=== PATIENT | female | born 1985 | race Caucasian/White ===

== ENCOUNTER 2020-12-22 12:01 | Inpatient (IN) ==
[2020-12-22] MEDS ORDERED: SODIUM CHLORIDE 0.9% 1000ML 1,000 ML IV ONE (12:25)
[2020-12-22] MEDS ORDERED: ACETAMINOPHEN 1,000 MG/100 ML VIAL IV STA (12:25)
[2020-12-22] MEDS ORDERED: ONDANSETRON INJ 2 MG/ML 2 ML VIAL IV STA ×2 (12:25→16:47)
[2020-12-22 12:50] LABS: Basophils # (auto) 0.01 K/uL (0-0.2); Basophils % (auto) 0.1 %; Hematocrit (blood only) 39.8 % (37-47); Hemoglobin 13.4 g/dL (12.0-16.0); Immature Granulocytes # (auto) 0.04 K/uL (0.00-0.02); Immature Granulocytes % (auto) 0.3 %; Lymphocytes # (auto) 0.71 K/uL (1.2-3.4); Lymphocytes % (auto) 5.8 %; Mean Corpuscular Hemoglobin 29.4 pg (25-34); Mean Corpuscular Hgb Conc 33.7 g/dL (32-36); Mean Corpuscular Volume 87.3 fL (80-100); Mean Platelet Volume 9.5 fL (7.4-10.4); Monocytes # (auto) 0.61 K/uL (0.11-0.59); Neutrophils # (auto) 10.93 K/uL (1.4-6.5); Neutrophils % (auto) 88.8 %; Platelet Count 159 K/uL (130-400); RDW Coefficient of Variation 13.5 % (11.5-14.5); RDW Standard Deviation 43.7 fL (36.4-46.3); Red Blood Count 4.56 M/uL (4.2-5.4)
[2020-12-22 13:09] LABS: Albumin Level 3.3 gm/dl (3.4-5.0); BUN Creatinine Ratio 14.3 (10-20); Calcium 9.1 mg/dl (8.5-10.1); Creatinine Clr Calc Pharmacy 65.7 ml/min; Est GFR (African American) 86.5 ml/min; Est GFR (Non-African American) 74.6 ml/min; Potassium 3.7 mmol/L (3.5-5.1); Pregnancy Test, Serum Negative (Negative)
[2020-12-22 13:10] LABS: Appearance Urine Cloudy (Clear); Bilirubin Urine 3+ (Negative); Blood Urine 3+ (Negative); Color Urine Dark Yellow; Epithelial Cell Urine Auto 20-30 /lpf (0-5); Glucose Urine UA Negative (Negative); Ketones Urine 4+ (Negative); Leukocyte Esterase Urine 1+ (Negative); Nitrite Urine Negative (Negative); Protein Urine 2+ (Negative); RBC Urine Automated >30 /hpf (0-4); Specific Gravity Urine 1.029 (1.000-1.030); Urobilinogen Urine Negative (Negative); WBC Urine Automated >30 /hpf (0-5); pH Urine 5.5 (4.5-7.5)
[2020-12-22 13:11] LABS: Albumin Globulin Ratio 0.7 (0.9-2); Bilirubin,Total 0.9 mg/dl (0.2-1); Globulin 4.5 gm/dl (2.5-4.0); Total Protein 7.8 gm/dl (6.4-8.2)
[2020-12-22] MEDS ORDERED: LACTATED RINGER'S 1,000 ML IV ONE ×2 (13:35→15:38)
--- NOTE | 2020-12-22 13:47 | Emergency Department Note ---
History of Present Illness General Chief complaint: Flank Pain Stated complaint: NAUSEA,VOMITING,HEADACHE Time Seen by Provider: 12/22/20 12:20 Source: patient Mode of arrival: ambulatory Limitations: no limitations History of Present Illness Provider complaint: left flank pain, vomiting Onset (ago): day(s) 2 Radiation: non-radiation Maximum Pain Intensity: 2 Relieved By: + none Associated symptoms: + fever/chills, + loss of appetite, + malaise, + nausea/vomiting and + weakness Treatments prior to arrival: none This is a 35-year-old female presents emergency department complaining of left flank pain, nausea and vomiting and concern for dehydration. Patient states she began with symptoms 2 days ago, and has been unable to tolerate anything by mouth. Patient states this is similar to an episode previously where she was told she had a kidney stone. Patient states she has had minimal urine output due to decreased oral intake. She denies any diarrhea or change in stools. Denies any chance of . Denies any vaginal bleeding. She denies any additional URI symptoms, difficulty breathing, or chest pain. No family history of kidney stones. She states she did not have any additional follow-up after initial kidney stone and is uncertain if she passed it. On review of EMR at bedside with the patient, she did have a left ureteral stone of [address] imaging. Patient denies chance of , states she did just start her menstrual cycle. Pt seen during a time of high acuity and national emergency pandemic while wearing PPE. Home Medications Medication Instructions Recorded Confirmed Type etodolac 200 mg capsule 200 mg PO BID PRN #20 cap 10/26/20 12/22/20 Rx ondansetron 4 mg disintegrating 4 mg PO Q8H PRN #30 tab 10/26/20 12/22/20 Rx tablet Allergies Allergy/AdvReac Type Severity Reaction Status Date / Time No Known Allergies Allergy Unverified 12/22/20 13:12 Past Med/Surg History Medical History No pertinent family history No pertinent past medical history Surgical History No pertinent past surgical history Social History Smoking Status: Never smoker Hx Alcohol Use: No Hx Substance Use: No Preferred Language: Korean Communication Ability: Effective Lock Operator Required: No Beliefs That Will Affect Care: None Current Living Situation: Family Current Living Situation Comment: home Other Information That Helps Us Care for You: No Feels Safe at Home: Yes Assistive Devices: None Review of Systems A total of 10 systems reviewed and were otherwise negative All systems reviewed & are unremarkable except as noted in HPI & below Physical Exam Vital Signs Vital Signs - 24 hr 12/22/20 18:00 Temperature 36.9 C Temperature Source Oral Pulse Rate [Apical] 96 H Pulse Rhythm [Apical] Regular Pulse Strength [Apical] Normal Respiratory Rate 18 Respiratory Effort / Characteristics Non-Labored Spontaneous Respiratory Depth Normal Respiratory Pattern Regular Blood Pressure [Left Arm] 131/82 Blood Pressure Mean [Left Arm] 98 Blood Pressure Position [Left Arm] Semi-fowlers Pulse Oximetry 98 Oxygen Delivery Method Room Air GENERAL: alert, unwell appearing, well nourished, no distress, non-toxic EYE EXAM: normal conjunctiva, PERRL and EOM's grossly intact OROPHARYNX: no exudate, no erythema, lips, buccal mucosa, and tongue normal and mucous membranes are dry NECK: supple, no nuchal rigidity, no adenopathy, non-tender LUNGS: Clear to auscultation. Normal chest wall mechanics, no w/r/r HEART: no murmurs, S1 normal and S2 normal ABDOMEN: abdomen soft, non-tender, normo-active bowel sounds, no masses, no rebound or guarding. BACK: Back is symmetrical on inspection and there is no deformity, no midline tenderness, no CVA tenderness. SKIN: no rashes and no bruising UPPER EXTREMITIES: upper extremities are grossly normal. FROM, nml pulses b/l. LOWER EXTREMITIES: No pitting edema. FROM, nml pulses b/l. NEURO EXAM: Normal sensorium, cranial nerves II-XII grossly intact, normal speech, no gross weakness of arms, no gross weakness of legs. Gross sensation intact. Course Course 151: Patient updated on results, states she is feeling markedly improved, second liter still running. 1640: Patient attempted p.o. trial and after a few sips became very nauseated again. 1753: Patient still nauseated after additional nausea medication and unable to tolerate even sips of water. Patient concern for ability to tolerate p.o. at home which I agree with. Patient now also beginning to have what appears to be rigors at bedside. Discussed with her antibiotics and empiric treatment for what may be an evolving a sending UTI given abnormal UA. Patient did previously have a urinary tract infection with similar symptoms. Discussed with her it is unclear at this time if she could still have an occult stone in her ureter, there is no obvious evidence for acute stone on ultrasound. Ultrasound had initially been performed after bedside discussion of her recent evaluation including CT last month in order to spare her additional radiation exposure. Will recheck temperature and add antibiotics. 182: Discussed with Dr. Ritchie. He would like CAT scan given recent kidney stone. Administered Medications Acetaminophen (Acetaminophen 500 Mg Tab) 1,000 mg PO Q8H PRN PRN Reason: Pain or Fever Stop: 01/21/21 19:14 Last Admin: 12/22/20 23:31 Dose: 1,000 mg Documented by: [id number] Enoxaparin Sodium (Enoxaparin Inj 40 Mg/0.4 Ml Syr) 40 mg SQ Q24H BRADY Stop: 01/21/21 21:59 Last Admin: 12/22/20 23:33 Dose: Not Given Documented by: [id number] Potassium Chloride/Sodium Chloride (Normal Saline W/20 Meq Kcl) 20 meq in 1,000 mls @ 125 mls/hr IV .Q8H BRADY Stop: 12/23/20 22:59 Last Admin: 12/23/20 15:34 Dose: 125 mls/hr Documented by: [id number] Infusion: 12/23/20 15:32 Dose: 0 mls/hr Documented by: [id number] Admin: 12/23/20 07:06 Dose: 125 mls/hr Documented by: [id number] Infusion: 12/23/20 07:06 Dose: 125 mls/hr Documented by: [id number] Admin: 12/22/20 23:32 Dose: 125 mls/hr Documented by: [id number] Ertapenem 1,000 mg/ Sodium (Chloride) 60 mls @ 100 mls/hr IV Q24H BRADY; Protocol Stop: 01/02/21 07:59 Last Infusion: 12/23/20 09:59 Dose: 0 mls/hr Documented by: [id number] Admin: 12/23/20 08:07 Dose: 100 mls/hr Documented by: [id number] Discontinued Medications Ciprofloxacin (Ciprofloxacin 500 Mg Tab) 500 mg PO NOW STA Stop: 12/22/20 18:49 Last Admin: 12/23/20 00:13 Dose: 500 mg Documented by: [id number] Famotidine (Famotidine 20mg/5ml Iv Push) 20 mg IV ONE STA Stop: 12/22/20 16:49 Last Admin: 12/22/20 17:25 Dose: 20 mg Documented by: [id number] Sodium Chloride (Nss 1000ml) 1,000 mls @ 999 mls/hr IV .Q1H1M ONE Stop: 12/22/20 13:25 Last Infusion: 12/22/20 13:43 Dose: 0 mls/hr Documented by: [id number] Admin: 12/22/20 12:39 Dose: 999 mls/hr Documented by: [id number] Acetaminophen (Ofirmev) 1,000 mg in 100 mls @ 400 mls/hr IV NOW STA Stop: 12/22/20 12:39 Last Infusion: 12/22/20 12:56 Dose: 0 mls/hr Documented by: [id number] Admin: 12/22/20 12:40 Dose: 400 mls/hr Documented by: [id number] Lactated Ringer's (Lr) 1,000 mls @ 999 mls/hr IV .Q1H1M ONE Stop: 12/22/20 14:35 Last Infusion: 12/22/20 15:31 Dose: 0 mls/hr Documented by: [id number] Admin: 12/22/20 14:10 Dose: 999 mls/hr Documented by: [id number] Lactated Ringer's (Lr) 1,000 mls @ 999 mls/hr IV .Q1H1M ONE Stop: 12/22/20 16:38 Last Infusion: 12/22/20 18:27 Dose: 0 mls/hr Documented by: [id number] Admin: 12/22/20 15:47 Dose: 999 mls/hr Documented by: [id number] Cefepime HCl (Maxipime) 2,000 mg in 20 mls @ 5 mls/min IV NOW STA; Protocol Stop: 12/22/20 18:01 Last Admin: 12/22/20 18:22 Dose: 5 mls/min Documented by: [id number] Prochlorperazine (Compazine) 1 mls @ 1 mls/min IV ONE ONE Stop: 12/22/20 18:00 Last Admin: 12/22/20 18:18 Dose: 1 mls/min Documented by: [id number] Ondansetron HCl (Ondansetron Inj 2 Mg/Ml 2 Ml Vial) 4 mg IV NOW STA Stop: 12/22/20 12:26 Last Admin: 12/22/20 12:39 Dose: 4 mg Documented by: [id number] Ondansetron HCl (Ondansetron Inj 2 Mg/Ml 2 Ml Vial) 4 mg IV NOW STA Stop: 12/22/20 16:48 Last Admin: 12/22/20 17:24 Dose: 4 mg Documented by: [id number] Tamsulosin HCl (Tamsulosin Hcl 0.4 Mg Cap) 0.4 mg PO NOW ONE Stop: 12/22/20 16:45 Last Admin: 12/22/20 17:27 Dose: 0.4 mg Documented by: [id number] Medical Decision Making Differential Diagnosis Differential diagnosis: Etiologies such as shingles, pyelonephritis/UTI, renal colic, appendicitis, diverticulitis, mesenteric ischemia, torsion, aortic pathology, infections, inflammatory bowel disease, bowel obstruction, PUD, biliary pathology, as well as others were entertained. Medical Records Attestation: I reviewed the patient's medical records. Home Medications Current Medication List: was personally reviewed by me Laboratory Data Attestation: I reviewed the patient's lab results. Result diagrams: 12/23/20 07:30 12/23/20 07:30 Lab Results 12/22/20 12/22/20 12/22/20 Range/Units 12:35 12:35 12:35 WBC 12.30 H (4.8-10.8) K/uL RBC 4.56 (4.2-5.4) M/uL Hgb 13.4 (12.0-16.0) g/dL Hct 39.8 (37-47) % MCV 87.3 (80-100) fL MCH 29.4 (25-34) pg MCHC 33.7 (32-36) g/dL RDW Std Deviation 43.7 (36.4-46.3) fL RDW Coeff of Steve 13.5 (11.5-14.5) % Plt Count 159 (130-400) K/uL MPV 9.5 (7.4-10.4) fL Immature Gran % (Auto) 0.3 % Neut % (Auto) 88.8 % Lymph % (Auto) 5.8 % [place] % (Auto) 5.0 % Eos % (Auto) 0.0 % Baso % (Auto) 0.1 % Neut # (Auto) 10.93 H (1.4-6.5) K/uL Lymph # (Auto) 0.71 L (1.2-3.4) K/uL [place] # (Auto) 0.61 H (0.11-0.59) K/uL Eos # (Auto) 0.00 (0-0.5) K/uL Baso # (Auto) 0.01 (0-0.2) K/uL Immature Gran # (Auto) 0.04 H (0.00-0.02) K/uL Sodium 135 L (136-145) mmol/L Potassium 3.7 (3.5-5.1) mmol/L Chloride 102 (98-107) mmol/L Carbon Dioxide 25 (21-32) mmol/L Anion Gap 8.0 (3-11) BUN 14 (7-18) mg/dl Creatinine 0.97 (0.6-1.2) mg/dl Est Cr Clr Drug Dosing 65.7 ml/min Est GFR ( Amer) 86.5 ml/min Est GFR (Non-Af Amer) 74.6 ml/min BUN/Creatinine Ratio 14.3 (10-20) Glucose 109 H (70-99) mg/dl Calcium 9.1 (8.5-10.1) mg/dl Magnesium 2.0 (1.8-2.4) mg/dl Total Bilirubin 0.9 (0.2-1) mg/dl AST 15 (15-37) U/L ALT 30 (12-78) U/L Alkaline Phosphatase 58 (45-117) U/L Total Protein 7.8 (6.4-8.2) gm/dl Albumin 3.3 L (3.4-5.0) gm/dl Globulin 4.5 H (2.5-4.0) gm/dl Albumin/Globulin Ratio 0.7 L (0.9-2) Procalcitonin (0-0.5) ng/ml HCG, Qual Negative (Negative) Urine Color Urine Appearance (Clear) Urine pH (4.5-7.5) Ur Specific [place] (1.000-1.030) Urine Protein (Negative) Urine Glucose (UA) (Negative) Urine Ketones (Negative) Urine Blood (Negative) Urine Nitrite (Negative) Urine Bilirubin (Negative) Urine Urobilinogen (Negative) Ur Leukocyte Esterase (Negative) Urine WBC (Auto) (0-5) /hpf Urine RBC (Auto) (0-4) /hpf U Hyaline Cast (Auto) (0-5) /lpf U Epithel Cells (Auto) (0-5) /lpf Urine Bacteria (Auto) (Negative) Urine Mucus (None Prsent) Urine Yeast (None Prsent) 12/22/20 12/22/20 12/22/20 Range/Units 12:35 12:40 15:45 WBC (4.8-10.8) K/uL RBC (4.2-5.4) M/uL Hgb (12.0-16.0) g/dL Hct (37-47) % MCV (80-100) fL MCH (25-34) pg MCHC (32-36) g/dL RDW Std Deviation (36.4-46.3) fL RDW Coeff of Stvee (11.5-14.5) % Plt Count (130-400) K/uL MPV (7.4-10.4) fL Immature Gran % (Auto) % Neut % (Auto) % Lymph % (Auto) % [place] % (Auto) % Eos % (Auto) % Baso % (Auto) % Neut # (Auto) (1.4-6.5) K/uL Lymph # (Auto) (1.2-3.4) K/uL [place] # (Auto) (0.11-0.59) K/uL Eos # (Auto) (0-0.5) K/uL Baso # (Auto) (0-0.2) K/uL Immature Gran # (Auto) (0.00-0.02) K/uL Sodium (136-145) mmol/L Potassium (3.5-5.1) mmol/L Chloride (98-107) mmol/L Carbon Dioxide (21-32) mmol/L Anion Gap (3-11) BUN (7-18) mg/dl Creatinine (0.6-1.2) mg/dl Est Cr Clr Drug Dosing ml/min Est GFR ( Amer) ml/min Est GFR (Non-Af Amer) ml/min BUN/Creatinine Ratio (10-20) Glucose (70-99) mg/dl Calcium (8.5-10.1) mg/dl Magnesium (1.8-2.4) mg/dl Total Bilirubin (0.2-1) mg/dl AST (15-37) U/L ALT (12-78) U/L Alkaline Phosphatase (45-117) U/L Total Protein (6.4-8.2) gm/dl Albumin (3.4-5.0) gm/dl Globulin (2.5-4.0) gm/dl Albumin/Globulin Ratio (0.9-2) Procalcitonin 0.65 H (0-0.5) ng/ml HCG, Qual (Negative) Urine Color Dark Yellow Yellow Urine Appearance Cloudy A Clear (Clear) Urine pH 5.5 5.5 (4.5-7.5) Ur Specific [place] 1.029 1.010 (1.000-1.030) Urine Protein 2+ H Negative (Negative) Urine Glucose (UA) Negative Negative (Negative) Urine Ketones 4+ H 3+ H (Negative) Urine Blood 3+ H 3+ H (Negative) Urine Nitrite Negative Negative (Negative) Urine Bilirubin 3+ H Negative (Negative) Urine Urobilinogen Negative Negative (Negative) Ur Leukocyte Esterase 1+ H 1+ H (Negative) Urine WBC (Auto) >30 H 10-30 H (0-5) /hpf Urine RBC (Auto) >30 H >30 H (0-4) /hpf U Hyaline Cast (Auto) 1-5 1-5 (0-5) /lpf U Epithel Cells (Auto) 20-30 H 10-20 H (0-5) /lpf Urine Bacteria (Auto) 2+ H 1+ H (Negative) Urine Mucus Present A (None Prsent) Urine Yeast Present A (None Prsent) Imaging Data Radiologist's Impression: Renal Ultrasound 12/22/20 12:25 RENAL ULTRASOUND HISTORY: left flank pain, hx stone COMPARISON: Abdomen and pelvis CT 10/26/2020. FINDINGS: Right kidney: 11.4 cm. No hydronephrosis. Normal corticomedullary different iation and cortical thickness. Left kidney: 12.4 cm. Mild left hydronephrosis, unchanged. Normal corticomedullary differentiation and cortical thickness. Bladder: No bladder wall thickening. Only the right ureteral jet was identified. IMPRESSION: 1. Mild left hydronephrosis, unchanged. 2. Normal right kidney. ACT 112: Negative or not required by law. Electronically signed by: Stefan Phipps M.D. 12/22/2020 2:46 PM Abdomen/Pelvis CT 12/22/20 18:26 CT abd pelvis wo con CLINICAL HISTORY: flank pain, n/v, recent stone, poss pyelo TECHNIQUE: Helical axial images of the abdomen and pelvis were obtained. Automated dose lowering techniques and/or adjustment according to patient size were utilized for this exam. This exam was performed without intravenous contrast. COMPARISON: Comparison is made to CT abdomen pelvis 10/26/2020 FINDINGS: Lower chest: No acute abnormality Liver: Unremarkable. No focal lesions are seen. Gallbladder and biliary tree: No calcified gallstones. Normal caliber wall. No intra- or extrahepatic biliary ductal dilation. Pancreas: Unremarkable, no focal lesions. Spleen: Unremarkable. Adrenals: Unremarkable. Kidneys and ureters: Left hydronephrosis and hydroureter is seen. There is a stone in the proximal ureter measuring 3 mm in diameter. Bladder: Unremarkable. Reproductive organs: Unremarkable. Bowel: Unremarkable. Lymph nodes Retroperitoneal: Unremarkable. Mesenteric: Unremarkable. Pelvic: Unremarkable. Peritoneum: Normal Vessels: Atherosclerotic calcifications are seen. Abdominal wall: Unremarkable. Bones: Unremarkable. IMPRESSION: Obstructive stone in the left ureter measuring 3 mm, with resulting hydronephrosis/hydroureter. ACT 112: Negative or not required by law. Electronically signed by: Marcin Womack M.D. 12/22/2020 8:43 PM ECG Data Attestation: I personally reviewed and interpreted this ECG as follows: Indication: + abdominal pain and + vomiting Rate (beats per minute): 92 Rhythm: + normal sinus ECG Intervals/blocks: + Normal QRS and + Normal QT ECG [place]: + Normal ECG ST segments: + Normal ST segments MDM Narrative This is a 35-year-old female who presents with abrupt onset left flank pain, nausea and vomiting over the last several days. Patient concerned about pain as well as dehydration. Patient did appear clinically dry and was initially tachycardic. IV fluids started, labs drawn and sent which were reassuring. No evidence of TIFFANIE. Given recent CAT scan within the last 60 days for a kidney stone, we discussed opting for a renal ultrasound to minimize radiation exposure. Ultrasound was unrevealing. Patient's urine specimen initially difficult to interpret as it is in part likely contaminated from her menstrual cycle but it did also appear as though the patient is dehydrated. Patient was rehydrated with 2 L of IV fluids and a repeat UA was sent. This was minimally improved. Patient then began to develop rigors while here. Due to concern for occult evolving infection unlikely pyelonephritis as well as patient's ongoing nausea and inability to tolerate p.o., case was discussed with the hospitalist. During this discussion they requested repeat CT imaging to evaluate for possible recurrent stone. Patient had received IV cefepime and after review of urine culture and recent E. coli ESBL, Cipro was also added. Repeat urine culture is pending. Patient remained hemodynamically stable while in the emergency department. She was seen by the hospitalist while CT was pending. They will follow-up results and re-evaluate. An order was placed for continuous cardiac monitoring. The monitor shows a rate of _106 with sinus tachycardia_ rhythm. Impression & Plan Flank Pain, Nausea and vomiting, Acute dehydration, Acute pyelonephritis, Ureterolithiasis Discharge Plan Visit Data Chief Complaint: Flank Pain Stated Complaint: NAUSEA,VOMITING,HEADACHE ED Provider: Meggan Morrow Discharge Problem: Flank Pain, Nausea and vomiting, Acute dehydration, Acute pyelonephritis, Ureterolithiasis Patient Disposition: Admitted As Inpatient Condition: Good Discharge Instructions Interventions: ED Discharge Assessment Last Done: 12/22/20 21:41
[2020-12-22 13:55] LABS: Mucus Urine Present (None Prsent)
[2020-12-22 13:56] LABS: Bacteria Urine Automated 2+ (Negative)
--- NOTE | 2020-12-22 14:48 | Ultrasound Report ---
RENAL ULTRASOUND HISTORY: left flank pain, hx stone COMPARISON: Abdomen and pelvis CT 10/26/2020. FINDINGS: Right kidney: 11.4 cm. No hydronephrosis. Normal corticomedullary differentiation and cortical thickn ess. Left kidney: 12.4 cm. Mild left hydronephrosis, unchanged. Normal corticomedullary differentiation an d cortical thickness. Bladder: No bladder wall thickening. Only the right ureteral jet was identified. IMPRESSION: 1. Mild left hydronephrosis, unchanged. 2. Normal right kidney. ACT 112: Negative or not required by law. Electronically signed by: Stefan Phipps M.D. 12/22/2020 2:46 PM
[2020-12-22 16:10] LABS: Appearance Urine Clear (Clear); Bacteria Urine Automated 1+ (Negative); Bilirubin Urine Negative (Negative); Blood Urine 3+ (Negative); Color Urine Yellow; Glucose Urine UA Negative (Negative); Ketones Urine 3+ (Negative); Leukocyte Esterase Urine 1+ (Negative); Nitrite Urine Negative (Negative); Protein Urine Negative (Negative); RBC Urine Automated >30 /hpf (0-4); Urobilinogen Urine Negative (Negative); pH Urine 5.5 (4.5-7.5)
[2020-12-22] MEDS ORDERED: TAMSULOSIN HCL 0.4 MG CAP PO ONE (16:44)
[2020-12-22] MEDS ORDERED: FAMOTIDINE 20MG/5ML IV PUSH IV STA (16:48)
[2020-12-22] MEDS ORDERED: CEFEPIME 2,000 MG/20 ML VIAL IV STA (17:58)
[2020-12-22] MEDS ORDERED: PROCHLORPERAZINE 1 ML IV ONE (17:59)
[2020-12-22] MEDS ORDERED: CIPROFLOXACIN 500 MG TAB PO STA (18:48)
[2020-12-22] MEDS ORDERED: PROMETHAZINE HCL 12.5 MG in SODIUM CHLORIDE 0.9% 50 ML IV PRN (18:54)
--- NOTE | 2020-12-22 19:09 | History & Physical Report ---
Date of Service December 22, 2020 Assessment & Plan (1) Acute pyelonephritis: Plan: Noted to have a 4 mm obstructive stone in left proximal ureter with mild left hydronephrosis and hydroureter on 26 October on CAT scan Ultrasound showed left mild hydronephrosis, awaiting CT scan report Had chills with increasing white count and UA suggestive of infection Likely has pyelonephritis with or without left ureteric stone Received a dose of cefepime changed to Cipro and will continue Symptomatic medications IV fluid and pain control May need urology evaluation Urine culture grew ESBL on 26 October Sensitive to Cipro Await urine culture Blood cultures will be ordered (2) Flank Pain: Plan: Secondary to ureteric stone which is documented on 26 October (3) Nausea and vomiting: Plan: Likely due to pyonephritis (4) Acute dehydration: Plan: Received intravenous fluid We will continue IV fluid and monitor PRP DVT prophylaxis Subcu Lovenox CODE STATUS Full History of Present Illness Chief Complaint: Left flank pain with nausea vomiting for the last 3 days Primary Care Provider: NO PCP She is a 35-year-old female without significant past medical history apparently was in the ER on 26 October with left flank pain. At that time she was diagnosed to have a left ureteric stone on CAT scan and was sent home on oral pain medications and was advised to drink more fluid. She has been complaining of left flank pain/discomfort associated with profuse nausea and vomiting. She has not been keeping anything down and getting weak and tired. She complains to have chills but no documented temperature. She has dysuria without any frequency and no problem with her bowel habit. She was noted to have slightly elevated white count, UA suggestive of infection and ultrasound of the kidney did show possible hydronephrosis on the left side. She received a dose of cefepime in the ER and later on Cipro was given to continue and she underwent CT of the abdomen and pelvis to evaluate the stone and the kidneys. She was admitted to medical floor for continuation of care. Allergies Allergy/AdvReac Type Severity Reaction Status Date / Time No Known Allergies Allergy Unverified 12/22/20 13:12 Home Medications Medication Instructions Recorded Confirmed Type etodolac 200 mg capsule 200 mg PO BID PRN #20 cap 10/26/20 12/22/20 Rx ondansetron 4 mg disintegrating 4 mg PO Q8H PRN #30 tab 10/26/20 12/22/20 Rx tablet Past Med/Surg History Medical History No pertinent family history No pertinent past medical history Surgical History No pertinent past surgical history Social History Smoking Status: Never smoker Feels Safe at Home: Yes Review of Systems Review of Systems: All systems reviewed & are unremarkable except as noted in HPI & below Gastrointestinal: Left flank discomfort with profuse nausea and vomiting Genitourinary: Dysuria Physical Exam Physical Exam: Lying in bed with some discomfort due to abdominal pain Constitutional: + ill appearing and + thin Eyes: PERRL, conjunctivae normal, anicteric sclerae ENMT: external ear and nose normal, oropharynx normal Neck: trachea midline, no thyromegaly Respiratory: no respiratory distress Auscultation: lungs clear to auscultation bilaterally Cardiovascular: Rate/Rhythm: regular rate and regular rhythm; not tachycardic Heart Sounds: normal S1 and normal S2; no murmur Extremities: no edema Gastrointestinal (Abdomen): Inspection/Auscultation: abdomen not distended Percussion/Palpation: + abdomen tender (Left flank, left renal angle and left lower quadrant) Musculoskeletal: No acute arthritis in any joint Neurologic: Alert, awake and oriented x3. No focal sensory and motor deficit appreciated Psychiatric: A+Ox3, euthymic affect Lymphatic: no cervical or axillary lymphadenopathy Results & Data Results & Data ([facility]) Vital Signs (Past 12 Hours) Vital Signs Temp Pulse Pulse Resp BP BP Pulse Ox 12/22/20 18:00 36.9 C 96 H 18 131/82 98 12/22/20 16:00 84 16 119/87 99 12/22/20 14:02 91 H 16 102/71 99 12/22/20 13:30 98 H 20 106/76 97 12/22/20 13:00 105 H 20 97 12/22/20 12:02 37.6 C H 120 H 18 116/76 96 Laboratory Results Short CBC 12/22/20 Range/Units 12:35 WBC 12.30 H (4.8-10.8) K/uL Hgb 13.4 (12.0-16.0) g/dL Hct 39.8 (37-47) % Plt Count 159 (130-400) K/uL BMP 12/22/20 12:35 Sodium 135 L Potassium 3.7 Chloride 102 Carbon Dioxide 25 BUN 14 Creatinine 0.97 Glucose 109 H Calcium 9.1 Liver Function 12/22/20 Range/Units 12:35 Total Bilirubin 0.9 (0.2-1) mg/dl AST 15 (15-37) U/L ALT 30 (12-78) U/L Alkaline Phosphatase 58 (45-117) U/L Albumin 3.3 L (3.4-5.0) gm/dl Urine 12/22/20 12/22/20 Range/Units 12:40 15:45 Urine Color Dark Yellow Yellow Urine Appearance Cloudy A Clear (Clear) Urine pH 5.5 5.5 (4.5-7.5) Ur Specific [place] 1.029 1.010 (1.000-1.030) Urine Protein 2+ H Negative (Negative) Urine Glucose (UA) Negative Negative (Negative) Medications Administered Current Inpatient Medications Enoxaparin Sodium (Enoxaparin Inj 40 Mg/0.4 Ml Syr) 40 mg SQ QAM BRADY Stop: 01/21/21 18:59 Promethazine HCl 12.5 mg/ (Sodium Chloride) 50.5 mls @ 202 mls/hr IV Q6H PRN PRN Reason: Nausea And Vomiting Stop: 01/21/21 18:53 Code Status & VTE Plan VTE Prophylaxis Plan VTE Prophylaxis will be ordered: Yes (1) Nausea and vomiting Vomiting Intractability: non-intractable Vomiting type: unspecified Qualified Code(s): R11.2 - Nausea with vomiting, unspecified
--- NOTE | 2020-12-22 20:44 | CT Scan Report ---
CT abd pelvis wo con CLINICAL HISTORY: flank pain, n/v, recent stone, poss pyelo TECHNIQUE: Helical axial images of the abdomen and pelvis were obtained. Automated dose lowering tech niques and/or adjustment according to patient size were utilized for this exam. This exam was perfor med without intravenous contrast. COMPARISON: Comparison is made to CT abdomen pelvis 10/26/2020 FINDINGS: Lower chest: No acute abnormality Liver: Unremarkable. No focal lesions are seen. Gallbladder and biliary tree: No calcified gallstones. Normal caliber wall. No intra- or extrahepatic biliary ductal dilation. Pancreas: Unremarkable, no focal lesions. Spleen: Unremarkable. Adrenals: Unremarkable. Kidneys and ureters: Left hydronephrosis and hydroureter is seen. There is a stone in the proximal ur eter measuring 3 mm in diameter. Bladder: Unremarkable. Reproductive organs: Unremarkable. Bowel: Unremarkable. Lymph nodes Retroperitoneal: Unremarkable. Mesenteric: Unremarkable. Pelvic: Unremarkable. Peritoneum: Normal Vessels: Atherosclerotic calcifications are seen. Abdominal wall: Unremarkable. Bones: Unremarkable. IMPRESSION: Obstructive stone in the left ureter measuring 3 mm, with resulting hydronephrosis/hydroureter. ACT 112: Negative or not required by law. Electronically signed by: Marcin Womack M.D. 12/22/2020 8:43 PM
[2020-12-22] MEDS ORDERED: KETOROLAC TROMETHAMINE 15 MG/ML VIAL IV PRN (22:11)
[2020-12-22] MEDS ORDERED: Influenza Vaccine (Fluarix) 0.5 ML SYR (Standard Dose) IM ONE (23:15)
[2020-12-22] MEDS: ACETAMINOPHEN 500 MG TAB PO PRN (23:31)
[2020-12-22] MEDS: NSS + 20MEQ KCL 20 MEQ/1,000 ML BAG IV SCH (23:32)
[2020-12-22] MEDS: ENOXAPARIN INJ 40 MG/0.4 ML SYR SQ SCH (23:33)
[2020-12-23] MEDS: NSS + 20MEQ KCL 20 MEQ/1,000 ML BAG IV SCH ×2 (07:06→15:34)
[2020-12-23] MEDS ORDERED: ERTAPENEM CONSULT ACTIVE PRN (07:15)
[2020-12-23 07:52] LABS: Basophils # (auto) 0.01 K/uL (0-0.2); Basophils % (auto) 0.2 %; Eosinophils # (auto) 0.01 K/uL (0-0.5); Eosinophils % (auto) 0.2 %; Hematocrit (blood only) 34.2 % (37-47); Hemoglobin 11.2 g/dL (12.0-16.0); Lymphocytes # (auto) 0.68 K/uL (1.2-3.4); Lymphocytes % (auto) 10.8 %; Mean Corpuscular Hemoglobin 28.4 pg (25-34); Mean Corpuscular Hgb Conc 32.7 g/dL (32-36); Mean Corpuscular Volume 86.8 fL (80-100); Mean Platelet Volume 9.4 fL (7.4-10.4); Monocytes # (auto) 0.67 K/uL (0.11-0.59); Monocytes % (auto) 10.6 %; Neutrophils # (auto) 4.94 K/uL (1.4-6.5); Neutrophils % (auto) 78.2 %; Platelet Count 130 K/uL (130-400); RDW Coefficient of Variation 13.5 % (11.5-14.5); RDW Standard Deviation 43.6 fL (36.4-46.3); Red Blood Count 3.94 M/uL (4.2-5.4); White Blood Count 6.31 K/uL (4.8-10.8)
--- NOTE | 2020-12-23 07:52 | Electrocardiogram Report ---
Test Reason : Blood Pressure : / mmHG Vent. Rate : 092 BPM Atrial Rate : 092 BPM P-R Int : 122 ms QRS Dur : 086 ms QT Int : 334 ms P-R-T Axes : 067 057 039 degrees QTc Int : 413 ms Normal sinus rhythm Normal ECG No previous ECGs available Confirmed by Michael Estes ([id number]) on 12/23/2020 7:52:27 AM Referred By: REFERRED SELF Confirmed By:Wilian Estes
[2020-12-23] MEDS: ERTAPENEM SODIUM 1,000 MG in SODIUM CHLORIDE 0.9% 50 ML IV SCH (08:07)
[2020-12-23 08:17] LABS: BUN Creatinine Ratio 18.8 (10-20); Calcium 7.9 mg/dl (8.5-10.1); Creatinine Clr Calc Pharmacy 127.4 ml/min; Est GFR (African American) 143.3 ml/min; Est GFR (Non-African American) 123.6 ml/min; Potassium 3.9 mmol/L (3.5-5.1)
--- NOTE | 2020-12-23 08:39 | Urology Consultation ---
Date of Consultation December 23, 2020 Assessment & Plan (1) Left ureteral stone: (2) Acute pyelonephritis: We reviewed the CT findings of her 3 mm left proximal ureteral stone. We reviewed that this had not changed significantly since the CT scan from early October,. We also reviewed the results of her urinalysis -I think these are equivocal, as the epithelial cells suggest contamination, but there are bacteria present. The leukocyte esterase may be a result of the stone or po ssible infection. There are also yeast present on the UA. She does not have a significant leukocytosis at this time, and remains hemodynamically stable. The stone by itself is not a significant problem, but in the setting of possible infection we discussed the role for surgical intervention with cystoscopy, retrograde pyelogram and left ureteral stent placement, to allow maximal decompression of the left kidney. We discussed the risks and benefits of stent placement, including bleeding, infection, injury to the urinary tract, inability to place stent and need for future stone treatment. She expressed understanding but did not want to undergo surgery at this time. We discussed that not undergoing surgery could put her at risk for worsening infection, which in a worst-case scenario could result in . We discussed that normally a 3mm stone has a good chance of passing spontaneously, however since her stone has not moved over the past 2 months, she will likely require some form of intervention for the stone. She reports [place], and would like to wait until she goes home to have the stone addressed. I think it is reasonable to monitor for now, but told her that if she continues to have fevers or decompensates clinically, I would advocate more strongly for ureteral stent placement. Plan/recommendations: -Hold off on stent placement for now -Okay for diet today, would recommend n.p.o. at midnight again for reevaluation -Continue antibiotics -Consider adding antifungals (fluconazole) for yeast in urine -Pain control with Tylenol, NSAIDs, Flomax, -Zofran for nausea History of Present Illness Reason for Consultation: left ureteral stone, concern for urinary tract infection. Attending Physician: Vesta Ritchie MD History of Present Illness This is a 35-year-old female who presented to the emergency department with left-sided flank pain, as well as reported fevers to 39 cm at home. Since arrival, she has not had a measured temperature above 38.0C. She had previously been seen on 10/27/2020 in the emergency department flank pain, at which point she was diagnosed with a 4 mm left proximal ureteral stone. At that time, pain was controlled with ketorolac, nausea was controlled with Zofran. She was instructed to follow-up with urology office, but it does not appear that she ever made an appointment. This morning, she reports that her pain and nausea had resolved after the October ED visit, and she thought that the stone might of passed although she never actually visualized it. The pain restarted suddenly over the past few d ays, as well as the fevers, prompting presentation to the emergency department. Here she has been started on antibiotics, and is feeling somewhat better. She still has intermittent pain. She does not think she has had a urinary tract infection before, but reports some dysuria currently. No prior history of stones, no prior history of surgeries. Allergies Allergy/AdvReac Type Severity Reaction Status Date / Time No Known Allergies Allergy Unverified 12/22/20 13:12 Home Medications Medication Instructions Recorded Confirmed Type etodolac 200 mg capsule 200 mg PO BID PRN #20 cap 10/26/20 12/22/20 Rx ondansetron 4 mg disintegrating 4 mg PO Q8H PRN #30 tab 10/26/20 12/22/20 Rx tablet Patient History Medical History No pertinent family history No pertinent past medical history Surgical History No pertinent past surgical history Social History Smoking Status: Never smoker Hx Alcohol Use: No Hx Substance Use: No Preferred Language: Amharic Communication Ability: Effective Piano Stringer Required: No Beliefs That Will Affect Care: None Current Living Situation: Family Current Living Situation Comment: home Other Information That Helps Us Care for You: No Feels Safe at Home: Yes Review of Systems Constitutional: Reports fevers and chills at home Respiratory: No trouble breathing, no shortness of breath Cardiovascular: Additional Comments: No palpitations Gastrointestinal: Reports of nausea and vomiting Genitourinary: Flank pain, known kidney stone but has not passed. Some dysuria. Musculoskeletal: No muscle aches or joint pains Integumentary: No rashes or bruises Neurologic: No weakness, numbness or tingling Endocrine: No fatigue Hematologic / Lymphatic: No easy bleeding Physical Exam Physical Exam: Standing/pacing, anxious appearing Constitutional: No acute distress, mild diaphoresis Eyes: Conjugate gaze, no scleral icterus Respiratory: Breathing comfortably on room air, no audible wheezing Cardiovascular: Regular rate and rhythm Gastrointestinal (Abdomen): Nondistended, nontender Musculoskeletal: Grossly normal Skin: No rashes, bumps or bruises Neurologic: Moving all 4 extremities, no tremor Genitourinary: left flank tenderness Results & Data ([facility]) Vital Signs (Past 12 Hours) Vital Signs Temp Pulse Pulse Pulse Resp BP BP 12/23/20 08:00 37.8 C H 101 H 18 110/75 12/23/20 03:23 37.4 C 87 16 108/64 12/23/20 01:56 102 H 12/22/20 22:20 37.7 C H 111 H 16 116/98 Pulse Ox 12/23/20 08:00 96 12/23/20 03:23 97 12/23/20 01:56 12/22/20 22:20 98 Laboratory Results CBC: 131, hemoglobin 11.2, platelets 130 BMP, normal sodium and potassium, chloride 108, creatinine 0.5 Urinalysis: 3+ blood, 1+ leukocyte esterase, negative nitrites, 10-30 WBC per hpf, 1+ bacteria and 1+ epithelial cells, yeast present Diagnostic Findings 12/22/2020: CT abdomen pelvis IMPRESSION: Obstructive stone in the left ureter measuring 3 mm, with resulting hydronephrosis/hydroureter. PG Care Time/CCT Total # of Minutes Spent Total Time Spent with Patient: Total time spent is greater than 50% in coordination of care (as documented) at patient's floor/unit and/or counseling patient: Coding Level of Care Code 97172 Inpt Consult Level 4 Diagnoses Left ureteral stone N20.1 Acute pyelonephritis N10
[2020-12-23] MEDS ORDERED: CEFEPIME 2,000 MG in SYRINGE 0 ML IV SCH (09:00)
--- NOTE | 2020-12-23 13:44 | Hospitalist Progress Note ---
Date of Service December 23, 2020 Assessment & Plan (1) Acute pyelonephritis: Plan: Noted to have a 4 mm obstructive stone in left proximal ureter with mild left hydronephrosis and hydroureter on 26 October on CAT scan Ultrasound showed left mild hydronephrosis, awaiting CT scan report Had chills with increasing white count and UA suggestive of infection Likely has pyelonephritis with or without left ureteric stone Received a dose of cefepime changed to Cipro and will continue Symptomatic medications IV fluid and pain control CT scan did show 3 mm obstructed left ureteric stone with associated hydroureter and hydronephrosis Appreciate urology input and recommendation So for the patient is trying to resolve the problem without surgery Urine culture grew ESBL on 26 October Sensitive to Cipro Await urine culture-growing gram-negative bacilli Blood cultures will be ordered-have been pending (2) Flank Pain: Plan: Secondary to ureteric stone which is documented on 26 October A little better (3) Nausea and vomiting: Plan: Likely due to pyonephritis (4) Acute dehydration: Plan: Received intravenous fluid We will continue IV fluid and monitor PRP DVT prophylaxis Subcu Lovenox CODE STATUS Full Admission and Anticipated Discharge Date Admission Date: December 22, 2020 Subjective 12/23/2020 The patient was seen and examined in medical telemetry unit Symptomatically she is a little better Her nausea and vomiting are improved and has been tolerating diet Still has left flank and lower quadrant discomfort/pain Review of Systems Review of Systems: All systems reviewed and are unremarkable except as noted below Gastrointestinal: Left flank discomfort with profuse nausea and vomiting Genitourinary: Dysuria Physical Exam Physical Exam: Lying in bed with some discomfort due to abdominal pain Constitutional: + ill appearing and + thin Eyes: PERRL, conjunctivae normal, anicteric sclerae ENMT: external ear and nose normal, oropharynx normal Neck: trachea midline, no thyromegaly Respiratory: no respiratory distress Auscultation: lungs clear to auscultation bilaterally Cardiovascular: Rate/Rhythm: regular rate and regular rhythm; not tachycardic Heart Sounds: normal S1 and normal S2; no murmur Extremities: no edema Gastrointestinal (Abdomen): Inspection/Auscultation: abdomen not distended Percussion/Palpation: + abdomen tender (Left flank, left renal angle and left lower quadrant) Musculoskeletal: No acute arthritis in any joint Neurologic: Alert, awake and oriented x3. No focal sensory or motor deficit appreciated Psychiatric: A+Ox3, euthymic affect Lymphatic: no cervical or axillary lymphadenopathy Results & Data Results & Data ([facility]) Vital Signs (Past 12 Hours) Vital Signs Temp Pulse Pulse Resp BP Pulse Ox 12/23/20 11:31 37.2 C 83 18 113/79 97 12/23/20 08:00 37.8 C H 101 H 18 110/75 96 12/23/20 06:17 96 H 12/23/20 03:23 37.4 C 87 16 108/64 97 12/23/20 01:56 102 H Laboratory Results Short CBC 12/23/20 Range/Units 07:30 WBC 6.31 (4.8-10.8) K/uL Hgb 11.2 L (12.0-16.0) g/dL Hct 34.2 L (37-47) % Plt Count 130 (130-400) K/uL BMP 12/23/20 07:30 Sodium 139 Potassium 3.9 Chloride 108 H Carbon Dioxide 22 BUN 9 D Creatinine 0.50 L D Glucose 90 Calcium 7.9 L Urine 12/22/20 Range/Units 15:45 Urine Color Yellow Urine Appearance Clear (Clear) Urine pH 5.5 (4.5-7.5) Ur Specific [place] 1.010 (1.000-1.030) Urine Protein Negative (Negative) Urine Glucose (UA) Negative (Negative) Medications Administered Current Inpatient Medications Acetaminophen (Acetaminophen 500 Mg Tab) 1,000 mg PO Q8H PRN PRN Reason: Pain or Fever Stop: 01/21/21 19:14 Last Admin: 12/22/20 23:31 Dose: 1,000 mg Documented by: Enoxaparin Sodium (Enoxaparin Inj 40 Mg/0.4 Ml Syr) 40 mg SQ Q24H BRADY Stop: 01/21/21 21:59 Last Admin: 12/22/20 23:33 Dose: Not Given Documented by: Ertapenem (Ertapenem Consult Active) 1 ea N/A UD PRN PRN Reason: Consult Stop: 01/22/21 07:14 Promethazine HCl 12.5 mg/ (Sodium Chloride) 50.5 mls @ 202 mls/hr IV Q6H PRN PRN Reason: Nausea And Vomiting Stop: 01/21/21 18:53 Potassium Chloride/Sodium Chloride (Normal Saline W/20 Meq Kcl) 20 meq in 1,000 mls @ 125 mls/hr IV .Q8H BRADY Stop: 12/23/20 22:59 Last Admin: 12/23/20 07:06 Dose: 125 mls/hr Documented by: Ertapenem 1,000 mg/ Sodium (Chloride) 60 mls @ 100 mls/hr IV Q24H BRADY; Protocol Stop: 01/02/21 07:59 Last Infusion: 12/23/20 09:59 Dose: Infused Documented by: Ketorolac Tromethamine (Ketorolac Tromethamine 15 Mg/Ml Vial) 15 mg IV Q6H PRN PRN Reason: Pain Stop: 12/27/20 22:10 (1) Nausea and vomiting Vomiting Intractability: non-intractable Vomiting type: unspecified Qualified Code(s): R11.2 - Nausea with vomiting, unspecified
[2020-12-23] MEDS: ENOXAPARIN INJ 40 MG/0.4 ML SYR SQ SCH (21:45)
[2020-12-23] MEDS: ACETAMINOPHEN 500 MG TAB PO PRN (22:47)
[2020-12-24 06:36] LABS: Basophils # (auto) 0.01 K/uL (0-0.2); Basophils % (auto) 0.2 %; Eosinophils # (auto) 0.04 K/uL (0-0.5); Eosinophils % (auto) 0.8 %; Hematocrit (blood only) 37.1 % (37-47); Hemoglobin 12.2 g/dL (12.0-16.0); Immature Granulocytes # (auto) 0.01 K/uL (0.00-0.02); Immature Granulocytes % (auto) 0.2 %; Lymphocytes # (auto) 1.49 K/uL (1.2-3.4); Lymphocytes % (auto) 31.6 %; Mean Corpuscular Hemoglobin 28.5 pg (25-34); Mean Corpuscular Hgb Conc 32.9 g/dL (32-36); Mean Corpuscular Volume 86.7 fL (80-100); Mean Platelet Volume 9.7 fL (7.4-10.4); Monocytes # (auto) 0.81 K/uL (0.11-0.59); Monocytes % (auto) 17.2 %; Neutrophils # (auto) 2.35 K/uL (1.4-6.5); Platelet Count 169 K/uL (130-400); RDW Coefficient of Variation 13.6 % (11.5-14.5); RDW Standard Deviation 43.4 fL (36.4-46.3); Red Blood Count 4.28 M/uL (4.2-5.4); White Blood Count 4.71 K/uL (4.8-10.8)
[2020-12-24 07:12] LABS: BUN Creatinine Ratio 12.2 (10-20); Calcium 9.1 mg/dl (8.5-10.1); Creatinine Clr Calc Pharmacy 141.5 ml/min; Est GFR (African American) 148.4 ml/min; Potassium 3.5 mmol/L (3.5-5.1)
--- NOTE | 2020-12-24 07:49 | Urology Progress Note ---
Date of Service December 24, 2020 Assessment & Plan (1) Flank Pain: (2) Left ureteral stone: (3) Acute pyelonephritis: Plan: 35 year-old female patient admitted with suspected pyelonephritis and left flank pain secondary to obstructing 3 mm left proximal ureteral calculus. -Patient was febrile over the past 24 hours with T-max 38.1C, afebrile this AM. -Labs reviewed - white count and creatinine stable. -Preliminary urine culture positive for E.Coli ESBL, await final. -Preliminary blood cultures no growth after 24 hours. -Recommend continuing with supportive care, hydration, and antibiotic therapy. -Strain all urine. -Keep NPO. -Discussed treatment options in great detail including insertion of left ureteral stent placement today with stone treatment as outpatient once infection treated. -Discussed concerns/risks for obstructing ureteral calculus with associated fevers and positive urine culture. Also discussed risks of not undergoing surgical intervention including worsening infection, sepsis, and worst-case scenario could result in . Findings reviewed with Dr. Vasques. Given her intermittent fevers and UTI in the context of an obstructing left proximal ureteral stone, will proceed with OR for cystoscopy, left retrograde pyelogram, and left stent placement. Risks and benefits of procedure discussed and to be reviewed with patient by Dr. Vasques. OR notified. COVID-19 negative. test ordered. Patient covered with routine IV Ertapenem. ATTENDING NOTE: Independently evaluated, examined, interviewed, and assessed. Discussed options. Patient having fever with obstructing stone and history of ESBL UTI/pyelo. Risks and benefits discussed at length for procedure. These include bleeding, infection, injury to surrounding tissues or organs, and risks associated with anesthesia. Patient states understanding and agrees to proceed. Will sign consent and schedule. Plan to proceed with cystoscopy and left stent placement. Admission and Anticipated Discharge Date Admission Date: December 22, 2020 Subjective Patient examined at bedside. She is alert, oriented, and non-toxic on exam. Reports she is feeling "fine". Denies flank or abdominal pain. She reports she last had pain in the ER. Denies nausea or vomiting. Denies subjective fever or chills. Denies dizziness/lightheadedness. Denies dysuria, hematuria, frequency, or urgency. No stone passage since admission that she is aware of. Has been NPO since midnight. Chart review: T-max in 24 hours 38.1C, afebrile this AM. Wbc 4.71 Hgb 12.2 Creatinine 0.45 Preliminary urine culture E.Coli ESBL, currently on IV Ertapenem. Preliminary blood cultures no growth after 24 hours. Denies additional urologic concerns today. Review of Systems Constitutional: as per Subjective / HPI; no chills Respiratory: no problem reported Cardiovascular: no chest pain and no edema Gastrointestinal: as per Subjective / HPI; no nausea and no vomiting Genitourinary: as per Subjective / HPI Neurologic: no dizziness Physical Exam Constitutional: well developed and well nourished; no acute distress and not ill appearing Respiratory: normal respiratory effort and able to speak in complete sentenc es; no respiratory distress and no audible wheezes Gastrointestinal (Abdomen): Inspection/Auscultation: abdomen normal to inspection; abdomen not distended Percussion/Palpation: abdomen soft; abdomen nontender and no guarding Psychiatric: Orientation: alert, oriented x 3 and cooperative Affect: euthymic affect Genitourinary: no CVA tenderness Results & Data ([facility]) Vital Signs (Past 12 Hours) Vital Signs Temp Pulse Pulse Resp BP Pulse Ox 12/24/20 03:06 36.7 C 87 16 109/76 97 12/23/20 23:28 94 H 12/23/20 23:14 38.1 C H 109 H 18 112/79 97 PG Care Time/CCT Total # of Minutes Spent Total Time Spent with Patient: Total time spent is greater than 50% in coordination of care (as documented) at patient's floor/unit and/or counseling patient: Coding Level of Care Code 18899 Subseq Hosp Care Lvl 2 Diagnoses Flank Pain R10.9 Left ureteral stone N20.1 Acute pyelonephritis N10
[2020-12-24] MEDS: ERTAPENEM SODIUM 1,000 MG in SODIUM CHLORIDE 0.9% 50 ML IV SCH (07:53)
[2020-12-24] MEDS ORDERED: ePHEDrine sulfate 50 MG/ML AMP IV PRN (12:46)
[2020-12-24] MEDS ORDERED: ONDANSETRON INJ 2 MG/ML 2 ML VIAL IV PRN (12:46)
[2020-12-24] MEDS ORDERED: fentaNYL citrate 100 MCG/2 ML VIAL IV PRN (12:46)
[2020-12-24] MEDS ORDERED: HYDROmorphone INJ 2 MG/ML SYR/VIAL IV PRN (12:46)
[2020-12-24] MEDS ORDERED: ATROPINE SULFATE 0.1 MG/ML 10ML SYR IV PRN (12:46)
--- NOTE | 2020-12-24 12:46 | Anesthesiology Consultation ---
Date of Service December 24, 2020 Assessment & Plan ASA ASA2 Proposed Anesthesia Anesthesia Type: MAC Risk / Benefits Reviewed With: PT / POA / Parent / Guardian, Accepts Plan and Informed Consent Obtained History Surgery Operation Date: 12/24/20 13:50 Proposed Procedures p Cystoscopy, Left Retrograde, Stent Insertion - Adam Vasques, DO Height/Weight Height: 5 ft 2.99 in Weight: 59.6 kg Allergies Allergy/AdvReac Type Severity Reaction Status Date / Time No Known Allergies Allergy Unverified 12/22/20 13:12 Medications Home Medications Medication Instructions Recorded Confirmed Last Taken etodolac 200 mg capsule 200 mg PO BID PRN #20 cap 10/26/20 12/22/20 12/22/20 ondansetron 4 mg disintegrating 4 mg PO Q8H PRN #30 tab 10/26/20 12/22/20 12/22/20 tablet Active Medications Generic Name Dose Route Start Last Admin Trade Name Freq PRN Reason Stop Dose Admin Acetaminophen 1,000 mg 12/22/20 19:10 12/23/20 22:47 Acetaminophen 500 Mg Tab PO 01/21/21 19:14 1,000 mg Q8H PRN Administration Pain or Fever Enoxaparin Sodium 40 mg 12/22/20 22:00 12/23/20 21:45 Enoxaparin Inj 40 Mg/0.4 Ml Syr SQ 01/21/21 21:59 Not Given Q24H BRADY Ertapenem 1,000 mg/ Sodium 60 mls @ 100 mls/hr 12/23/20 08:00 12/24/20 08:38 Chloride IV 01/02/21 07:59 Infused Q24H BRADY Infusion Protocol NPO Date Last Intake of Fluids: 12/23/20 Time Last Intake of Fluids: 23:00 Date Last Intake of Solids: 12/23/20 Time Last Intake of Solids: 23:00 Past Medical History Medical History No pertinent family history No pertinent past medical history Exercise / Class Metabolic Activity II 4-5 Yardwork/Stairs/Walk up hill Past Surgical History Surgical History No pertinent past surgical history Past Anesthesia History No Hx of Anesthesia Complications and No Family Hx of Anesthesia Complications History of PONV No Hx of PONV and No Hx of Motion Sickness Social History Smoking Status: Never smoker Hx Alcohol Use: No Hx Substance Use: No Review of Systems denies fever/cough/ colds/ chest pain/ SOB/ ELI denies ELI Physical Exam Vital Signs Last Vital Signs Temp 36.9 C 12/24/20 12:32 Pulse 89 12/24/20 12:32 Resp 18 12/24/20 12:32 BP 133/88 12/24/20 12:32 Pulse Ox 100 12/24/20 12:32 ENMT Mouth: no TMJ abnormality and no dentition abnormality Thyromental Distance: > or= 3.5 Finger Breadths Mallampati Class: II Neck neck extension not limited Respiratory normal respiratory effort; no respiratory distress Auscultation: lungs clear to auscultation bilaterally Cardiovascular Rate/Rhythm: regular rate and regular rhythm Neurologic moves all extremities Psychiatric Orientation: alert and oriented x 3 Testing Laboratory Results 12/24/20 05:52 12/24/20 05:52 Urine Color Yellow 12/22/20 15:45 Urine Appearance Clear (Clear) 12/22/20 15:45 Urine pH 5.5 (4.5-7.5) 12/22/20 15:45 Ur Specific [place] 1.010 (1.000-1.030) 12/22/20 15:45 Urine Protein Negative (Negative) 12/22/20 15:45 Urine Glucose (UA) Negative (Negative) 12/22/20 15:45 Urine Ketones 3+ (Negative) H 12/22/20 15:45 Urine Nitrite Negative (Negative) 12/22/20 15:45 Ur Leukocyte Esterase 1+ (Negative) H 12/22/20 15:45 Urine WBC (Auto) 10-30 /hpf (0-5) H 12/22/20 15:45 Urine RBC (Auto) >30 /hpf (0-4) H 12/22/20 15:45 U Hyaline Cast (Auto) 1-5 /lpf (0-5) 12/22/20 15:45 U Epithel Cells (Auto) 10-20 /lpf (0-5) H 12/22/20 15:45 Urine Bacteria (Auto) 1+ (Negative) H 12/22/20 15:45 12/22/20 15:45 Urine Culture - Final Urine,Clean Catch Escherichia coli ESBL 12/22/20 12:40 Urine Culture - Final Urine,Clean Catch Escherichia coli ESBL 12/22/20 19:31 Aerobic Blood Culture - Preliminary Blood No growth in Aerobic bottle after 24 hours. Anaerobic Blood Culture - Final 12/22/20 20:37 Aerobic Blood Culture - Preliminary Blood No growth in Aerobic bottle after 24 hours. Anaerobic Blood Culture - Preliminary No growth in Anaerobic bottle after 24 hours.
[2020-12-24] MEDS ORDERED: ONDANSETRON INJ 2 MG/ML 2 ML VIAL ONE (13:07)
[2020-12-24] MEDS ORDERED: PROPOFOL IV EMULSION 10 MG/ML 20 ML VIAL IV ONE ×3 (13:07→13:14)
[2020-12-24] MEDS ORDERED: fentaNYL citrate 100 MCG/2 ML VIAL ONE (13:07)
[2020-12-24] MEDS ORDERED: MIDAZOLAM HCL 1 MG/ML 2ML VIAL ONE (13:07)
[2020-12-24] MEDS ORDERED: KETAMINE 50 MG/5 ML SYRINGE ONE (13:17)
--- NOTE | 2020-12-24 13:25 | Operative Report ---
PG Post Operative Report Pre & Post Diagnosis Left Ureteral Stone, Pyelonephritis Same Operation Date: 12/24/20 13:50 <No data on this case meets the specified criteria> I identified the patient and participated in the time-out.: Yes Procedure Cystoscopy with left aspiration, retrograde pyelogram, and stent placement. Operation Date: 12/24/20 13:50 <No data on this case meets the specified criteria> Surgeon Adam Vasques, II, DO Sports Physical Therapist None Estimated Blood Loss 1 Findings Consistent with Post-Op Diagnosis Stent placed in good position. Specimens Urine left renal plevis Drains 4.8 Fr x 26 on left. Anesthesia Type MAC Complications none Disposition Disposition: Recovery Room Indications Patient with obstruction. Risks and benefits discussed at length. Description of Procedure Patient was consented and brought back to the operating room. Patient was placed under anesthesia in the supine position and moved to the dorsal lithotomy position. Patient was prepped and draped in the regular sterile fashion. A time out was completed. A 30degree Cystoscope was placed into the bladder and the entire bladder was examined. The UO's were identified. The UO was cannulized with a catheter, urine was aspirated from the renal pelvis, and a retrograde pyelogram was completed. A wire was then placed. With the wire in place, a 4.8 Fr Double J stent was placed. It was confirmed with fluoroscopy. With the stent in place, the bladder was emptied. The scope was removed. The patient was cleaned, aroused from anesthesia, and transferred to [facility] in stable condition having tolerated the procedure well with no complications. I was present and participated in all aspects of the procedure. The patient will be monitored in the PACU until transferred. Plan to set up stone treatment in 5-10 days. Stent removal in office after treatment. I attest to the content of the Intraoperative Record and any orders documented therein. Any exceptions are noted below.
[2020-12-24] MEDS ORDERED: DIATRIZOATE MEGLUMINE 30% 100ML VIAL INSTIL ONE (13:37)
--- NOTE | 2020-12-24 13:45 | Anesthesiology Progress Note ---
Date of Service December 24, 2020 Anesthesia Post Procedure Vital Signs Vital Signs: Temp Pulse Pulse Pulse Resp BP BP 12/24/20 13:40 73 17 106/78 12/24/20 13:32 36.4 C L 83 19 113/75 12/24/20 12:32 36.9 C 89 18 133/88 12/24/20 11:40 36.8 C 81 18 124/87 12/24/20 08:00 72 12/24/20 03:06 36.7 C 87 16 109/76 12/23/20 23:28 94 H 12/23/20 23:14 38.1 C H 109 H 18 112/79 12/23/20 19:12 37.5 C 97 H 16 117/82 12/23/20 16:40 37 C 12/23/20 16:00 37.7 C H 100 H 18 114/76 12/23/20 14:18 102 H Pulse Ox 12/24/20 13:40 100 12/24/20 13:32 97 12/24/20 12:32 100 12/24/20 11:40 100 12/24/20 08:00 12/24/20 03:06 97 12/23/20 23:28 12/23/20 23:14 97 12/23/20 19:12 97 12/23/20 16:40 12/23/20 16:00 96 12/23/20 14:18 Pain Intensity Head: Pain Intensity: 5 Transfer of Care Handoff Completed per policy Notes Mental Status: alert / awake / arousable and participated in evaluation Patient Amnestic to Procedure: Yes Nausea / Vomiting: adequately controlled Pain: adequately controlled Airway Patency, RR, SpO2: stable & adequate BP & HR: stable & adequate Hydration State: stable & adequate Anesthetic Complications: no major complications apparent and Pt Satisfied with anesthetic care
--- NOTE | 2020-12-24 14:03 | Fluoroscopy Report ---
FL retrograde includes kub HISTORY: 35 years-old Female LEFT STENT PLACEMENT STATUS post placement of a left ureteral stent COMPARISON: CT 12/22/2020 TECHNIQUE: 3 views of the abdomen were obtained utilizing 29.7 seconds fluoroscopy time FINDINGS: Cannulation of the left ureter with retrograde injection of contrast which demonstrates persistent mo derate hydronephrosis. Subsequent images demonstrate placement of a ureteral stent which appears to b e in satisfactory positioning. There is questioned contrast outside the renal collecting system on th e last image, possibly artifactual. IMPRESSION: Fluoroscopic assistance as above. ACT 112: Negative or not required by law. The above report was generated using voice recognition software. It may contain grammatical, syntax o r spelling errors. Electronically signed by: Francesco Rausch M.D. 12/24/2020 2:02 PM
--- NOTE | 2020-12-24 14:21 | Anesthesiology Progress Note ---
Date of Service December 24, 2020 Anesthesia Post Procedure Vital Signs Vital Signs: Temp Pulse Pulse Pulse Resp BP BP 12/24/20 14:00 37.4 C 81 19 111/70 12/24/20 13:50 36.7 C 79 13 114/76 12/24/20 13:40 73 17 106/78 12/24/20 13:32 36.4 C L 83 19 113/75 12/24/20 12:32 36.9 C 89 18 133/88 12/24/20 11:40 36.8 C 81 18 124/87 12/24/20 08:00 72 12/24/20 03:06 36.7 C 87 16 109/76 12/23/20 23:28 94 H 12/23/20 23:14 38.1 C H 109 H 18 112/79 12/23/20 19:12 37.5 C 97 H 16 117/82 12/23/20 16:40 37 C 12/23/20 16:00 37.7 C H 100 H 18 114/76 Pulse Ox 12/24/20 14:00 97 12/24/20 13:50 97 12/24/20 13:40 100 12/24/20 13:32 97 12/24/20 12:32 100 12/24/20 11:40 100 12/24/20 08:00 12/24/20 03:06 97 12/23/20 23:28 12/23/20 23:14 97 12/23/20 19:12 97 12/23/20 16:40 12/23/20 16:00 96 Pain Intensity Head: Pain Intensity: 5 Transfer of Care Handoff Completed per policy Notes Mental Status: alert / awake / arousable and participated in evaluation Patient Amnestic to Procedure: Yes Nausea / Vomiting: adequately controlled Pain: adequately controlled Airway Patency, RR, SpO2: stable & adequate BP & HR: stable & adequate Hydration State: stable & adequate Anesthetic Complications: no major complications apparent and Pt Satisfied with anesthetic care
--- NOTE | 2020-12-24 15:54 | Hospitalist Progress Note ---
Date of Service December 24, 2020 Assessment & Plan (1) Acute pyelonephritis: Plan: Noted to have a 4 mm obstructive stone in left proximal ureter with mild left hydronephrosis and hydroureter on 26 October on CAT scan Ultrasound showed left mild hydronephrosis, awaiting CT scan report Had chills with increasing white count and UA suggestive of infection Likely has pyelonephritis with or without left ureteric stone Received a dose of cefepime changed to Cipro and will continue Symptomatic medications IV fluid and pain control CT scan did show 3 mm obstructed left ureteric stone with associated hydroureter and hydronephrosis Appreciate urology input and recommendation Has had fever last night and the urine culture is growing ESBL sensitive to Cipro Will have stent placement today by the urologist Urine culture grew ESBL on 26 October Sensitive to Cipro Await urine culture-growing gram-E. coli ESBL and is sensitive to Cipro Blood cultures will be ordered-negative so far Plan to discharge home on Cipro to finish a 10-day course of antibiotic (2) Flank Pain: Plan: Secondary to ureteric stone which is documented on 26 October A little better (3) Nausea and vomiting: Plan: Likely due to pyonephritis (4) Acute dehydration: Plan: Received intravenous fluid We will continue IV fluid and monitor PRP DVT prophylaxis Subcu Lovenox CODE STATUS Full Admission and Anticipated Discharge Date Admission Date: December 24, 2020 Subjective 12/23/2020 The patient was seen and examined in medical telemetry unit Symptomatically she is a little better Her nausea and vomiting are improved and has been tolerating diet Still has left flank and lower quadrant discomfort/pain 12/24/2020 The patient was seen and examined in medical telemetry unit She has had fever last night but the pain and other symptoms are improved She will have a stent placement today Review of Systems Review of Systems: All systems reviewed and are unremarkable except as noted below Gastrointestinal: Left flank discomfort with profuse nausea and vomiting Genitourinary: Dysuria Physical Exam Physical Exam: Lying in bed with some discomfort due to abdominal pain Constitutional: + ill appearing and + thin Eyes: PERRL, conjunctivae normal, anicteric sclerae ENMT: external ear and nose normal, oropharynx normal Neck: trachea midline, no thyromegaly Respiratory: no respiratory distress Auscultation: lungs clear to auscultation bilaterally Cardiovascular: Rate/Rhythm: regular rate and regular rhythm; not tachycardic Heart Sounds: normal S1 and normal S2; no murmur Extremities: no edema Gastrointestinal (Abdomen): Inspection/Auscultation: abdomen not distended Percussion/Palpation: + abdomen tender (Left flank, left renal angle and left lower quadrant) Musculoskeletal: No acute arthritis in any joint Neurologic: Alert, awake and oriented x3. No focal sensory and motor deficit appreciated Psychiatric: A+Ox3, euthymic affect Lymphatic: no cervical or axillary lymphadenopathy Results & Data Results & Data ([facility]) Vital Signs (Past 12 Hours) Vital Signs Temp Pulse Pulse Pulse Resp BP BP 12/24/20 14:30 80 18 107/68 12/24/20 14:00 37.4 C 81 19 111/70 12/24/20 13:50 36.7 C 79 13 114/76 12/24/20 13:40 73 17 106/78 12/24/20 13:32 36.4 C L 83 19 113/75 12/24/20 12:32 36.9 C 89 18 133/88 12/24/20 11:40 36.8 C 81 18 124/87 12/24/20 08:00 72 Pulse Ox 12/24/20 14:30 97 12/24/20 14:00 97 12/24/20 13:50 97 12/24/20 13:40 100 12/24/20 13:32 97 12/24/20 12:32 100 12/24/20 11:40 100 12/24/20 08:00 Laboratory Results Short CBC 12/24/20 Range/Units 05:52 WBC 4.71 L (4.8-10.8) K/uL Hgb 12.2 (12.0-16.0) g/dL Hct 37.1 (37-47) % Plt Count 169 (130-400) K/uL BMP 12/24/20 05:52 Sodium 141 Potassium 3.5 Chloride 108 H Carbon Dioxide 25 BUN 6 L Creatinine 0.45 L Glucose 93 Calcium 9.1 D Medications Administered Current Inpatient Medications Acetaminophen (Acetaminophen 500 Mg Tab) 1,000 mg PO Q8H PRN PRN Reason: Pain or Fever Stop: 01/21/21 19:14 Last Admin: 12/23/20 22:47 Dose: 1,000 mg Documented by: Atropine Sulfate (Atropine Sulfate 0.1 Mg/Ml 10ml Syr) 0.5 mg IV Q1M PRN PRN Reason: PACU Use-HR<40 &/or Bradycardi Stop: 12/24/20 20:46 Enoxaparin Sodium (Enoxaparin Inj 40 Mg/0.4 Ml Syr) 40 mg SQ Q24H BRADY Stop: 01/21/21 21:59 Last Admin: 12/23/20 21:45 Dose: Not Given Documented by: Ephedrine Sulfate (Ephedrine Sulfate 50 Mg/Ml Amp) 5 mg IV Q5M PRN PRN Reason: PACU Use Only-SBP<90 mmHg Stop: 12/24/20 20:46 Ertapenem (Ertapenem Consult Active) 1 ea N/A UD PRN PRN Reason: Consult Stop: 01/22/21 07:14 Fentanyl Citrate (Fentanyl Citrate 100 Mcg/2 Ml Vial) 50 mcg IV Q5M PRN PRN Reason: PACU Use Only-Pain Stop: 12/24/20 20:46 Hydromorphone HCl (Hydromorphone Inj 2 Mg/Ml Syr/Vial) 0.5 mg IV Q5M PRN PRN Reason: PACU Use Only-Pain Stop: 12/24/20 20:47 Promethazine HCl 12.5 mg/ (Sodium Chloride) 50.5 mls @ 202 mls/hr IV Q6H PRN PRN Reason: Nausea And Vomiting Stop: 01/21/21 18:53 Ertapenem 1,000 mg/ Sodium (Chloride) 60 mls @ 100 mls/hr IV Q24H BRADY; Protocol Stop: 01/02/21 07:59 Last Infusion: 12/24/20 08:38 Dose: Infused Documented by: Ketorolac Tromethamine (Ketorolac Tromethamine 15 Mg/Ml Vial) 15 mg IV Q6H PRN PRN Reason: Pain Stop: 12/27/20 22:10 Ondansetron HCl (Ondansetron Inj 2 Mg/Ml 2 Ml Vial) 4 mg IV ONCE PRN PRN Reason: PACU Use Only-Nausea/Vomiting Stop: 12/24/20 20:47 (1) Nausea and vomiting Vomiting Intractability: non-intractable Vomiting type: unspecified Qualified Code(s): R11.2 - Nausea with vomiting, unspecified
[2020-12-24] MEDS: ENOXAPARIN INJ 40 MG/0.4 ML SYR SQ SCH (21:36)
[2020-12-25 06:12] LABS: Basophils # (auto) 0.02 K/uL (0-0.2); Basophils % (auto) 0.4 %; Eosinophils # (auto) 0.07 K/uL (0-0.5); Eosinophils % (auto) 1.4 %; Hematocrit (blood only) 37.3 % (37-47); Hemoglobin 12.4 g/dL (12.0-16.0); Immature Granulocytes # (auto) 0.02 K/uL (0.00-0.02); Immature Granulocytes % (auto) 0.4 %; Lymphocytes # (auto) 1.09 K/uL (1.2-3.4); Lymphocytes % (auto) 22.1 %; Mean Corpuscular Hemoglobin 28.6 pg (25-34); Mean Corpuscular Hgb Conc 33.2 g/dL (32-36); Mean Corpuscular Volume 85.9 fL (80-100); Mean Platelet Volume 9.6 fL (7.4-10.4); Monocytes # (auto) 0.62 K/uL (0.11-0.59); Monocytes % (auto) 12.6 %; Neutrophils # (auto) 3.12 K/uL (1.4-6.5); Neutrophils % (auto) 63.1 %; Platelet Count 207 K/uL (130-400); RDW Coefficient of Variation 13.5 % (11.5-14.5); RDW Standard Deviation 42.7 fL (36.4-46.3); Red Blood Count 4.34 M/uL (4.2-5.4); White Blood Count 4.94 K/uL (4.8-10.8)
[2020-12-25 07:20] LABS: BUN Creatinine Ratio 11.5 (10-20); Calcium 9.3 mg/dl (8.5-10.1); Est GFR (African American) 144.3 ml/min; Est GFR (Non-African American) 124.5 ml/min; Potassium 3.3 mmol/L (3.5-5.1)
--- NOTE | 2020-12-25 07:24 | Urology Progress Note ---
Date of Service December 25, 2020 Assessment & Plan (1) Flank Pain: (2) Left ureteral stone: (3) Acute pyelonephritis: Plan: 35 year-old female patient admitted with suspected pyelonephritis and left flank pain secondary to obstructing 3 mm left proximal ureteral calculus. -POD#1 cystoscopy with left kidney aspiration, retrograde pyelogram, and left ureteral stent placement. -Patient clinically progressing as expected post procedure. -Patient afebrile over the past 24 hours. -Labs reviewed - white count and creatinine stable. -Final urine culture positive for E.Coli ESBL, plans to transition to oral Ciprofloxacin per primary team. -Preliminary blood cultures no growth after 48 hours. -Recommend continuing with supportive care, hydration, and antibiotic therapy. Recommend total of 10-14 day antibiotic therapy. -Okay for discharge from standpoint once deemed medically stable. -Recommend home with pain control, PRN Pyridium, and Tamsulosin. -Will arrange outpatient follow-up with urology service to discuss definitive stone treatment. -Expected clinical course reviewed with patient, all questions answered. Thank you for allowing us to participate in the acute care of Mrs. Linus Cho. Please reconsult us with additional questions, concerns or changes in patient status. Admission and Anticipated Discharge Date Admission Date: December 24, 2020 Subjective POD#1 cystoscopy with left kidney aspiration, retrograde pyelogram, and left ureteral stent placement. Patient examined this AM, feeling well. States she slept well overnight. Does report mild left flank discomfort with urination. Has not required any PRN pain medication for discomfort. Reports dysuria and hematuria as expected with stent. Denies fevers or chills. Denies nausea or vomiting. Diarrhea has improved, C-diff negative. Chart review: Afebrile over the past 24 hours. Wbc 4.94 Hgb 12.4 Creatinine 0.49 Final urine culture positive for E.Coli ESBL, sensitive to Ciprofloxacin. Preliminary blood cultures no growth after 48 hours. Patient currently on IV Ertapenem. Denies additional urologic concerns today. Review of Systems Constitutional: as per Subjective / HPI; no fever and no chills Gastrointestinal: as per Subjective / HPI; no nausea and no vomiting Genitourinary: as per Subjective / HPI Physical Exam Constitutional: well developed and well nourished; no acute distress and not ill appearing Respiratory: normal respiratory effort and able to speak in complete sentences; no respiratory distress and no audible wheezes Gastrointestinal (Abdomen): Inspection/Auscultation: abdomen normal to inspection; abdomen not distended Percussion/Palpation: abdomen soft; abdomen nontender and no guarding Psychiatric: Orientation: alert, oriented x 3 and cooperative Affect: euthymic affect Genitourinary: no CVA tenderness Results & Data ([facility]) Vital Signs (Past 12 Hours) Vital Signs Temp Pulse Pulse Resp BP Pulse Ox 12/25/20 04:08 36.9 C 86 16 114/72 98 12/25/20 00:11 37.3 C 92 H 16 107/71 98 12/24/20 22:48 85 12/24/20 19:48 37.2 C 88 16 123/82 99 PG Care Time/CCT Total # of Minutes Spent Total Time Spent with Patient: Total time spent is greater than 50% in coordination of care (as documented) at patient's floor/unit and/or counseling patient: Coding Level of Care Code 20674 Subseq Hosp Care Lvl 2 Diagnoses Flank Pain R10.9 Left ureteral stone N20.1 Acute pyelonephritis N10
[2020-12-25] MEDS: ERTAPENEM SODIUM 1,000 MG in SODIUM CHLORIDE 0.9% 50 ML IV SCH (09:27)
[2020-12-25] MEDS ORDERED: PHENAZOPYRIDINE HCL 200 MG TAB PO PRN (10:26)
--- NOTE | 2020-12-25 11:59 | Hospitalist Progress Note ---
Date of Service December 25, 2020 Assessment & Plan (1) Acute pyelonephritis: Plan: Noted to have a 4 mm obstructive stone in left proximal ureter with mild left hydronephrosis and hydroureter on 26 October on CAT scan Ultrasound showed left mild hydronephrosis, awaiting CT scan report Had chills with increasing white count and UA suggestive of infection Likely has pyelonephritis with or without left ureteric stone Received a dose of cefepime changed to Cipro and will continue Symptomatic medications IV fluid and pain control CT scan did show 3 mm obstructed left ureteric stone with associated hydroureter and hydronephrosis Appreciate urology input and recommendation Has had fever last night and the urine culture is growing ESBL sensitive to Cipro Status post left ureteric stent placement Remains afebrile, blood cultures negative and urine culture grew E. coli ESBL sensitive to Cipro Will be discharged home this afternoon with a urology follow-up as a scheduled Urine culture grew ESBL on 26 October Sensitive to Cipro Await urine culture-growing gram-E. coli ESBL and is sensitive to Cipro Blood cultures will be ordered-negative so far Plan to discharge home on Cipro to finish a 10-day course of antibiotic Discussed with the pharmacist regarding use of antibiotic She did not have any bacteremia and will give Cipro 500 mg twice daily for 12 more days to complete the course of 14 days Will be given Pyridium for dysuria (2) Flank Pain: Plan: Secondary to ureteric stone which is documented on 26 October A little better (3) Nausea and vomiting: Plan: Likely due to pyonephritis (4) Acute dehydration: Plan: Received intravenous fluid We will continue IV fluid and monitor PRP DVT prophylaxis Subcu Lovenox CODE STATUS Full Admission and Anticipated Discharge Date Admission Date: December 24, 2020 Subjective 12/23/2020 The patient was seen and examined in medical telemetry unit Symptomatically she is a little better Her nausea and vomiting are improved and has been tolerating diet Still has left flank and lower quadrant discomfort/pain 12/24/2020 The patient was seen and examined in medical telemetry unit She has had fever last night but the pain and other symptoms are improved She will have a stent placement today 12/25/2020 The patient was seen and examined in medical telemetry unit She has been feeling much better following left ureteric stent placement Denies any pain in the abdomen and no nausea or vomiting Still has some dysuria Review of Systems Review of Systems: All systems reviewed and are unremarkable except as noted below Gastrointestinal: Left flank discomfort with profuse nausea and vomiting Genitourinary: Dysuria Physical Exam Physical Exam: Lying in bed comfortably Constitutional: + ill appearing and + thin Eyes: PERRL, conjunctivae normal, anicteric sclerae ENMT: external ear and nose normal, oropharynx normal Neck: trachea midline, no thyromegaly Respiratory: no respiratory distress Auscultation: lungs clear to auscultation bilaterally Cardiovascular: Rate/Rhythm: regular rate and regular rhythm; not tachycardic Heart Sounds: normal S1 and normal S2; no murmur Extremities: no edema Gastrointestinal (Abdomen): Inspection/Auscultation: abdomen not distended Percussion/Palpation: + abdomen tender (Left flank, left renal angle and left lower quadrant) Musculoskeletal: No acute arthritis in any joint Neurologic: Alert, awake and oriented x3 Psychiatric: A+Ox3, euthymic affect Lymphatic: no cervical or axillary lymphadenopathy Results & Data Results & Data ([facility]) Vital Signs (Past 12 Hours) Vital Signs Temp Pulse Pulse Resp BP Pulse Ox 12/25/20 08:00 70 12/25/20 07:22 36.8 C 87 16 112/74 99 12/25/20 04:08 36.9 C 86 16 114/72 98 12/25/20 00:11 37.3 C 92 H 16 107/71 98 Laboratory Results Short CBC 12/25/20 Range/Units 05:34 WBC 4.94 (4.8-10.8) K/uL Hgb 12.4 (12.0-16.0) g/dL Hct 37.3 (37-47) % Plt Count 207 (130-400) K/uL BMP 12/25/20 05:34 Sodium 138 Potassium 3.3 L Chloride 103 Carbon Dioxide 26 BUN 6 L Creatinine 0.49 L Glucose 96 Calcium 9.3 Medications Administered Current Inpatient Medications Acetaminophen (Acetaminophen 500 Mg Tab) 1,000 mg PO Q8H PRN PRN Reason: Pain or Fever Stop: 01/21/21 19:14 Last Admin: 12/23/20 22:47 Dose: 1,000 mg Documented by: Enoxaparin Sodium (Enoxaparin Inj 40 Mg/0.4 Ml Syr) 40 mg SQ Q24H BRADY Stop: 01/21/21 21:59 Last Admin: 12/24/20 21:36 Dose: 40 mg Documented by: Ertapenem (Ertapenem Consult Active) 1 ea N/A UD PRN PRN Reason: Consult Stop: 01/22/21 07:14 Promethazine HCl 12.5 mg/ (Sodium Chloride) 50.5 mls @ 202 mls/hr IV Q6H PRN PRN Reason: Nausea And Vomiting Stop: 01/21/21 18:53 Ertapenem 1,000 mg/ Sodium (Chloride) 60 mls @ 100 mls/hr IV Q24H [facility]; Protocol Stop: 01/02/21 07:59 Last Infusion: 12/25/20 10:21 Dose: Infused Documented by: Ketorolac Tromethamine (Ketorolac Tromethamine 15 Mg/Ml Vial) 15 mg IV Q6H PRN PRN Reason: Pain Stop: 12/27/20 22:10 Last Admin: 12/25/20 09:27 Dose: 15 mg Documented by: Phenazopyridine HCl (Phenazopyridine Hcl 200 Mg Tab) 200 mg PO TID PRN PRN Reason: Dysuria Stop: 01/24/21 10:25 (1) Nausea and vomiting Vomiting Intractability: non-intractable Vomiting type: unspecified Qualified Code(s): R11.2 - Nausea with vomiting, unspecified
--- NOTE | 2020-12-26 09:23 | Discharge Summary ---
Date of Service December 26, 2020 Admission HPI Per Admitting Provider She is a 35-year-old female without significant past medical history apparently was in the ER on 26 October with left flank pain. At that time she was diagnosed to have a left ureteric stone on CAT scan and was sent home on oral pain medications and was advised to drink more fluid. She has been complaining of left flank pain/discomfort associated with profuse nausea and vomiting. She has not been keeping anything down and getting weak and tired. She complains to have chills but no documented temperature. She has dysuria without any frequency and no problem with her bowel habit. She was noted to have slightly elevated white count, UA suggestive of infection and ultrasound of the kidney did show possible hydronephrosis on the left side. She received a dose of cefepime in the ER and later on Cipro was given to continue and she underwent CT of the abdomen and pelvis to evaluate the stone and the kidneys. She was admitted to medical floor for continuation of care. Admission Exam Per Admitting Provider Physical Exam: Lying in bed with some discomfort due to abdominal pain Constitutional: + ill appearing and + thin Eyes: PERRL, conjunctivae normal, anicteric sclerae ENMT: external ear and nose normal, oropharynx normal Neck: trachea midline, no thyromegaly Respiratory: no respiratory distress Auscultation: lungs clear to aus cultation bilaterally Cardiovascular: Rate/Rhythm: regular rate and regular rhythm; not tachycardic Heart Sounds: normal S1 and normal S2; no murmur Extremities: no edema Gastrointestinal (Abdomen): Inspection/Auscultation: abdomen not distended Percussion/Palpation: + abdomen tender (Left flank, left renal angle and left lower quadrant) Musculoskeletal: No acute arthritis in any joint Neurologic: Alert, awake and oriented x3. No focal sensory and motor deficit appreciated Psychiatric: A+Ox3, euthymic affect Lymphatic: no cervical or axillary lymphadenopathy Principal Diagnosis Acute pyelonephritis, E. coli ESBL UTI, obstructed left ureteric stone status post stent placement Discharge Exam Lying in bed comfortably Constitutional + ill appearing and + thin Eyes PERRL, conjunctivae normal, anicteric sclerae ENMT external ear and nose normal, oropharynx normal Neck trachea midline, no thyromegaly Respiratory no respiratory distress Auscultation: lungs clear to auscultation bilaterally Cardiovascular Rate/Rhythm: regular rate and regular rhythm; not tachycardic Heart Sounds: normal S1 and normal S2; no murmur Extremities: no edema Gastrointestinal (Abdomen) Inspection/Auscultation: abdomen not distended Percussion/Palpation: + abdomen tender (Left flank, left renal angle and left lower quadrant) Psychiatric A+Ox3, euthymic affect Lymphatic no cervical or axillary lymphadenopathy Discharge Data Allergies Allergy/AdvReac Type Severity Reaction Status Date / Time No Known Allergies Allergy Unverified 12/22/20 13:12 Consultations 12/22/20 18:26 ED Decision to Admit Stat 12/23/20 06:59 Consult Urology Routine Procedures Performed Operation Date: 12/24/20 13:50 Actual Procedures p Stent Insertion - Adam Vasques DO s Cystoscopy Retrograde - Adam Vasques DO Ordered Studies 12/22/20 12:25 US renal/blad retro comp Stat 12/22/20 18:26 CT abd pelvis wo con Stat 12/24/20 [place] retrograde includes kub Routine Hospital Course (1) Acute pyelonephritis: Noted to have a 4 mm obstructive stone in left proximal ureter with mild left hydronephrosis and hydroureter on 26 October on CAT scan Ultrasound showed left mild hydronephrosis, awaiting CT scan report Had chills with increasing white count and UA suggestive of infection Likely has pyelonephritis with or without left ureteric stone Received a dose of cefepime changed to Cipro and will continue Symptomatic medications IV fluid and pain control CT scan did show 3 mm obstructed left ureteric stone with associated hydroureter and hydronephrosis Appreciate urology input and recommendation Has had fever last night and the urine culture is growing ESBL sensitive to Cipro Status post left ureteric stent placement Remains afebrile, blood cultures negative and urine culture grew E. coli ESBL sensitive to Cipro Will be discharged home this afternoon with a urology follow-up as a scheduled Urine culture grew ESBL on 26 October Sensitive to Cipro Await urine culture-growing gram-E. coli ESBL and is sensitive to Cipro Blood cultures will be ordered-negative so far Plan to discharge home on Cipro to finish a 10-day course of antibiotic Discussed with the pharmacist regarding use of antibiotic She did not have any bacteremia and will give Cipro 500 mg twice daily for 12 more days to complete the course of 14 days Will be given Pyridium for dysuria (2) Flank Pain: Secondary to ureteric stone which is documented on 26 October A little better (3) Nausea and vomiting: Likely due to pyonephritis (4) Acute dehydration: Received intravenous fluid We will continue IV fluid and monitor PRP DVT prophylaxis Subcu Lovenox CODE STATUS Full Total Time Total Time Spent Total Time Spent (In Minutes): 35 minutes Discharge Plan Discharge Items Patient Disposition: Home - Self-Care Reason For Visit: PYELONEPHRITIS Discharge Diagnosis: Acute pyelonephritis, E. coli ESBL UTI, obstructed left ureteric stone status post stent placement Condition on Discharge: Good Activity: Resume your previous activity Non-emergency contact: Primary Care Provider Call non-emergency contact if: you have any medication questions and your symptoms worsen Follow-up/Referrals: Julianna Lynne MD [Outside Practitioners] - (Date & Time 12/28/2020 9:00 AM Provider Julianna Lynne MD Department Family Practice [address] ) Yesica Flores CRNP [Nurse Practitioner] - 12/27/20 10:45 am Diet: Regular Addtl Attending Provider Instructions: Please finish the course of antibiotic Try to drink plenty of fluid Keep appointments with your healthcare providers Addtl Custom Furrier Provider Instructions: Please take all medications as prescribed and keep all follow-ups as scheduled. Please call our office at [phone] with any questions, concerns or need to reschedule appointments for any reason. We are happy to assist you. While you have a ureteral stent in place: Some discomfort is normal. Certain movements may trigger pain or a feeling that you need to urinate. You may also feel mild soreness or pressure before or during urination. These symptoms should go away a few days after the stent is removed. Your urine may be slightly pink or red. This is due to bleeding caused by minor irritation from the stent. This may happen on and off while you have the stent, it is not harmful and is to be expected. Medication to help minimize discomfort or bladder spasms, or to prevent infection may be prescribed. Take this as directed. Drink plenty of fluids to help flush out your urinary tract. If you go home with a catheter, wash with soapy water and a fresh washcloth twice daily. We recommend mild bar soap such as Dial or Dove. How long will you need a stent? An appointment should already be made for you for stent removal, unless directed otherwise. The stent is often taken out after the blockage in the ureter is treated or the ureter has healed. This may take 1-2 weeks, or longer. If a stent is needed for a longer period of time, it may need to be exchanged every few months. Likely prior to your followup appointment you will be asked to get an X-ray, please complete this the night before or morning of your appointment. When to call [facility] at [phone]: Your urine contains heavy blood clots You are constantly leaking urine Fever of 101F or higher, chills, nausea, or vomiting Your pain is not relieved with medication The end of the stent comes out of your urethra Pending Studies at Discharge: No Stand-Alone Forms: My [facility] [employer], Smoking Cessation Medications and DC Order Prescriptions: New phenazopyridine [Pyridium] 200 mg Tablet 200 mg PO TID PRN (Reason: dysuria) 3 Days Qty: 9 RF: 0 ciprofloxacin HCl 500 mg tablet 500 mg PO BID Qty: 24 RF: 0 Lactinex 1 million cell tablet,chewable 1 tab PO BID Qty: 30 RF: 0 Continued etodolac 200 mg capsule 200 mg PO BID PRN (Reason: pain) Qty: 20 RF: 0 ondansetron 4 mg tablet,disintegrating 4 mg PO Q8H PRN (Reason: nausea and vomiting) Qty: 30 RF: 0 Discharge Orders: Discharge Order (Routine); Ordered 12/25/20 Ordered By: Vesta Ritchie Admission Data Admit Date/Time: 12/24/20 09:54 Attending Provider: Vesta Ritchie Admit Provider: Vesta Ritchie Primary Care Provider: PCP,NO Other Providers: Vesta Ritchie ; Jaguar Low ; Rajinder Rowe ; Dennis Adame ; Maricruz Lam ; Adam Vasques ; Sandy العراقي ; Ashely Grace ; Mona Parnell ; Theodore Rivera ; Cem Vizcaino ; Yesica Flores ; Frances Parnell ; Rg Wilkerson Other Interventions: Discharge Summary Assessment (RN) Last Done: 12/25/20 15:20
== END 2020-12-25 16:02 | disposition home or self-care (01) | DRG 661 ==
LOC: ED 12:01 → 2N 12:01